=== PATIENT | male | born 1950 | race Caucasian/White ===

== ENCOUNTER → 2023-08-17 17:34 | Outpatient (REF) | payer MEDICARE, OTHER, SELFPAY | LOC: MRI 3T 17:34 | PROVIDERS: ATTENDING PHYSICIAN Specialist; FAMILY PHYSICIAN Internal Medicine | DX: R97.20 Elevated prostate specific antigen [PSA] (principal); N40.0 Benign prostatic hyperplasia without lower urinary tract symptoms | CPT/HCPCS: 72197; A9575 ==

== ENCOUNTER → 2024-01-11 06:40 | Day surgery (SDC) | payer MEDICARE, OTHER, SELFPAY | LOC: GI 06:40 | PROVIDERS: ATTENDING PHYSICIAN Internal Medicine Gastroenterology; FAMILY PHYSICIAN Internal Medicine | DX: Z12.11 Encounter for screening for malignant neoplasm of colon (principal); K57.30 Diverticulosis of large intestine without perforation or abscess without bleeding; K64.8 Other hemorrhoids; D12.2 Benign neoplasm of ascending colon; D12.3 Benign neoplasm of transverse colon; Z86.010 Personal history of colon polyps | CPT/HCPCS: 45385; 45380; 88305 ==

== ENCOUNTER 2024-04-09 11:57 | Emergency (ER) | payer MEDICARE, OTHER, SELFPAY ==
[2024-04-09 12:01] VITALS: BP 117/98
[2024-04-09 12:26] LABS: % Basophils 0.6 % (0-2); % Eosinophils 1.7 % (0-6); % Immature Granulocytes 0.4 % (0-0.5); % Lymphocytes 16.6 % (20.5-51.1); % Monocytes 8.8 % (1.7-9.3); % Neutrophils 71.9 % (42.2-75.2); Absolute Basophils 0.1 10^3/uL (0-0.2); Absolute Eosinophils 0.1 10^3/uL (0-0.7); Absolute Lymphocytes 1.3 10^3/uL (1.2-3.4); Absolute Monocytes 0.7 10^3/uL (0.1-0.6); Absolute Neutrophils 5.6 10^3/uL (1.4-6.5); Hematocrit 42.5 % (39.0-52.0); Hemoglobin 14.8 g/dL (13.0-18.0); Mean Corp Hgb Conc. 34.8 g/dL (33.0-37.0); Mean Corpuscular Hgb 32.2 pg (27.0-31.0); Mean Corpuscular Volume 92.4 fL (80.0-94.0); Mean Platelet Volume 9.2 fL (7.4-10.4); Nucleated Red Blood Cells % 0 % (-); Platelet Count 194 10^3/uL (130-400); White Blood Cell Count 7.8 10^3/uL (4.8-10.8)
[2024-04-09 12:43] LABS: ALT (SGPT) 20 U/L (0-50); AST (SGOT) 26 U/L (17-59); Albumin 4.1 g/dl (3.5-5.0); Alkaline Phosphatase 73 U/L (38-126); Blood Urea Nitrogen 22 mg/dl (9-20); Calcium 10.1 mg/dl (8.4-10.2); Carbon Dioxide 31 mmol/L (22-30); Chloride 104 mmol/L (98-107); Glucose 108 mg/dl (70-99); Potassium 4.4 mmol/L (3.5-5.1); Sodium 143 mmol/L (135-145); Total Bilirubin 0.7 mg/dl (0.2-1.3); Total Protein 6.4 g/dl (6.3-8.2); eGFR > 60.00
[2024-04-09 12:49] LABS: Troponin I < 0.012 ng/ml
[2024-04-09 14:49] VITALS: BP 121/76
--- NOTE | 2024-04-09 15:42 | ED.GENMED ---
History of Present Illness
General
Chief Complaint: Heart Rate Problem
Source: patient
Time Seen by Provider: 04/09/24 15:28
History of Present Illness
History of Present Illness:
73-year-old male with past medical history of colon cancer status post colon resection and hyperlipidemia presenting to the emergency department for evaluation of palpitations that began around 8 AM, took an EKG with his Apple Watch which showed
that he potentially was in atrial fibrillation. Patient went to his primary care provider but by the time he got there he was in a sinus tachycardia based off their EKG but was still recommended to come to the ER for further evaluation. Patient
notes that he is currently asymptomatic. Denies any chest pain, shortness of breath, fevers or infectious symptoms, cough or any other concerns. Patient denies any history of similar. Social history noncontributory.
Past History
Past History
ED Past Medical History: Cancer and Hypercholesterolemia
ED Past Surgical History: Bowel resection
Social History
Tobacco: Non-smoker
Alcohol: None
Drug: None
Personal: Partner
Living: with family
Review of Systems
Review of Systems
All Other Systems: ROS reviewed and negative except as documented in HPI and ROS
Phy Exam
Physical Exam
Physical Exam:
GENERAL: Alert , in no apparent distress
EYE: conjunctiva clear
NECK: Supple
ENT: mmm.
CARDIAC: Regular rate and rhythm, no murmur
LUNGS: Clear breath sounds bilaterally, no acute respiratory distress, no wheezes/rales/rhonchi
NEUROLOGICAL: Alert and oriented
SKIN: Warm and dry, skin intact.
MUSCULOSKELETAL: well perfused.
PSYCH: Normal and appropriate interaction.
Scores
[id number] Score for Afib Stroke Risk
Age in Years (65=0, 65-74=1, >/=75=2): 65-74
Sex (Female=+1): Male
Congestive Heart Failure History (Yes=+1): No
Hypertension History (Yes=+1): No
Stroke/TIA/Thromboembolism History (Yes=+2): No
Vascular Disease History (Yes=+1): No
Diabetes Mellitus (Yes=+1): No
Score: 1
Anticoagulation Recommendations: Consider anticoagulation (as validated in nonvalvular fib)
Heart Failure Risk
Heart Failure Risk Score: Not Applicable
Heart Score for Chest Pain Patients
STEMI patient?: Not applicable
Withdrawal Assessment of Alcohol
Withdrawal Assessment Completed?: Not applicable
Course
Orders/Labs/Results
Orders:
Orders
04/09/24 11:59
EKG [Electrocardiogram (*1)] Urgent
Reason for Study: Palpitations
EKG- Treatment ONCE
04/09/24 12:11
Complete Blood Count/With Diff Urgent
Comprehensive Metabolic Panel Urgent
TSH Reflex To Free T4 Urgent
Troponin I Urgent
Abnormal Lab Results
04/09/24
12:11
RBC 4.60 L 10^6/uL
(4.70-6.10)
MCH 32.2 H pg
(27.0-31.0)
Absolute Monos (auto) 0.7 H 10^3/uL
(0.1-0.6)
Lymphocytes % 16.6 L %
(20.5-51.1)
Carbon Dioxide 31 H mmol/L
(22-30)
BUN 22 H mg/dl
(9-20)
Glucose 108 H mg/dl
(70-99)
04/09/24 12:11
04/09/24 12:11
Vital Signs
Initial and Last Documented VS:
Initial Vital Signs
Temp Pulse Resp BP Pulse Ox
98.2 F 101 16 117/98 100
04/09/24 12:01 04/09/24 12:01 04/09/24 12:01 04/09/24 12:01 04/09/24 12:01
Last Documented Vital Signs
Temp Pulse Resp BP Pulse Ox
98.2 F 82 18 135/85 98
04/09/24 14:49 04/09/24 15:57 04/09/24 14:49 04/09/24 15:57 04/09/24 15:57
MDM/Problems Addressed
Differential Diagnosis Includes:
paroxysmal atrial fibrillation, SVT, valvular dysfunction, no concern for ACS
MDM/Problems Addressed:
73-year-old male presenting to the ER for evaluation of possible new onset atrial fibrillation, primary care office patient was back into a sinus tachycardia and on arrival to the ER here patient is in a normal sinus rhythm and is otherwise
asymptomatic. Patient without any fever or infectious symptoms. Does drink small amounts of caffeine in the morning, no alcohol intake. Patient is otherwise hemodynamically stable and in no acute distress. I did review patient's EKG tracing done
from his Apple Watch and it is difficult to ascertain whether he was truly in atrial fibrillation. Will consult with cardiology for disposition planning.
*Pulse Oximetry
Patient hypoxic: no
*EKG
Comparison EKG: no comparison EKG present
Heart Rate: 62
Rate: normal
Rhythm: sinus
Ischemia: no ischemia
*Critical Care Note
Total Time (30-74mins, 75-104mins- exclusive of procedures): Not Applicable
Patient Management
Discussion with other providers: [employer]
Escalation/DeEscalation of care consider admission/obs:
Discussed case with Dr. Singh from cardiology who does not recommend anticoagulating at this time and would prefer patient follow-up as an outpatient. Discussed this plan with patient who is in agreement. He is aware of return precautions to
the ER. Stable for discharge home.
ED Attending Note
-
Portions of this chart may have been created with voice recognition software.� Occasional wrong word or��sound alike� substitutions may have occurred due to the inherent limitations of voice recognition software.
Discharge Plan
Departure
Patient Disposition: Home (Routine Discharge)
Date of Disposition: 04/09/24
Time of Disposition: 15:49
Patient with high blood pressure during this ER visit?: No
Discharge Problem:
Palpitations
Instructions: Palpitations (DC), Chest Pain CBC Follow Up
Referrals:
Raghav Ordonez I., DO [Family Provider] -
Interventions
Interventions:
*Risk Screen - Suicide Last Done: 04/09/24 15:57
*General Assessment Last Done: 04/09/24 15:57
*Neglect/Abuse Screening Last Done: 04/09/24 15:57
ED- Fall Risk Assessment Last Done: 04/09/24 15:57
*ED COVID-19 Vaccine History Last Done: 04/09/24 15:57
*Nursing Disposition Last Done: 04/09/24 15:57
ED- Cardiac Assessment Last Done: 04/09/24 15:57
ED- Pulmonary Assessment Last Done: 04/09/24 15:57
Discharge Date and Time
Discharge Date/Time: 04/09/24 15:58
Print Language: MAORI
[2024-04-09 15:57] VITALS: BP 135/85
== END 2024-04-09 15:58 | disposition home or self-care (01) ==
LOC: EMR 11:57
PROVIDERS: Emergency Medicine; EMERGENCY PHYSICIAN Emergency Medicine; FAMILY PHYSICIAN Internal Medicine
DX: R00.2 Palpitations (principal); E78.00 Pure hypercholesterolemia, unspecified; Z85.038 Personal history of other malignant neoplasm of large intestine; Z90.49 Acquired absence of other specified parts of digestive tract
CPT/HCPCS: 99284; 80053; 84443; 84484; 85025; 93005

== ENCOUNTER → 2024-05-17 12:55 | Outpatient (REF) | payer MEDICARE, OTHER, SELFPAY | LOC: RCS 12:55 | PROVIDERS: ATTENDING PHYSICIAN Student in an Organized Health Care Education/Training Program; FAMILY PHYSICIAN Internal Medicine | DX: R00.2 Palpitations (principal) | CPT/HCPCS: 93306 ==